=== PATIENT | female | born 1970 | race Two or more races ===

== ENCOUNTER 2024-02-22 06:48 | Emergency (ER) | payer OTHER ==
[~2024-02-22] VITALS: Ht 165.1 cm; Wt 80.7 kg
[2024-02-22] MEDS ORDERED: PREMARIN0.45 MG (07:03)
[2024-02-22] MEDS ORDERED: KETOROLAC TROMETHAMINE 30 MG VIAL IM STA (08:44)
[2024-02-22] MEDS ORDERED: KETOROLAC TROMETHAMINE 30 MG VIAL ONE (08:54)
[2024-02-22] MEDS ORDERED: DICLOFENAC POTA50 MG PO (11:18)
== END 2024-02-22 11:38 | disposition home or self-care (01) ==
LOC: ER 06:49
DX: M25.562 Pain in left knee (principal); M25.561 Pain in right knee; Z88.0 Allergy status to penicillin